=== PATIENT | male | born 1985 | race Caucasian/White ===

== ENCOUNTER 2022-09-10 14:44 | Emergency (ER) | payer BC, OTHER, SELFPAY ==
[~2022-09-10] VITALS: Ht 185.4 cm; Wt 86.4 kg
[2022-09-10] MEDS ORDERED: ACETAMINOPHEN 500 MG TAB PO ONE (15:20)
[2022-09-10] MEDS ORDERED: ONDANSETRON 4MG 2ML VIAL IV ONE (16:30)
[2022-09-10] MEDS ORDERED: MORPHINE 4 MG/ML 1ML VIAL IV ONE (16:30)
[2022-09-10] MEDS ORDERED: NS 1,000 ML IV ONE (16:30)
[2022-09-10 16:54] LABS: HEMATOCRIT 43.1 % (42.0-52.0); HEMOGLOBIN 14.6 g/dl (13.5-17.5); MEAN CORPUSCULAR HEMOGLOBIN 29.4 pg (27.0-33.0); MEAN CORPUSCULAR HGB CONC 33.9 g/dl (32.0-36.5); MEAN CORPUSCULAR VOLUME 86.7 fl (80.0-96.0); PLATELET COUNT, AUTOMATED 326 10^3/uL (150-450); RED BLOOD COUNT 4.97 10^6/uL (4.30-6.10); WHITE BLOOD COUNT 23.1 10^3/uL (4.0-10.0)
[2022-09-10] MEDS ORDERED: NS 1,000 ML IV SCH (17:05)
[2022-09-10 17:14] LABS: BLOOD UREA NITROGEN 11 MG/DL (9-23); CALCIUM LEVEL 8.5 MG/DL (8.5-10.1); CARBON DIOXIDE LEVEL 27 MMOL/L (20-31); CHLORIDE LEVEL 104 MMOL/L (98-107); CREATININE FOR GFR 0.85 MG/DL (0.70-1.30); GLOMERULAR FILTRATION RATE > 60.0 (>60); GLUCOSE, FASTING 139 MG/DL (60-100); POTASSIUM SERUM 3.6 MMOL/L (3.5-5.1); SODIUM LEVEL 139 MMOL/L (136-145)
[2022-09-10] MEDS ORDERED: propofoL 200 MG/20 ML VIAL IV.PROC PRN (17:40)
[2022-09-10] MEDS ORDERED: NORCO 5/325MG TABLET (HOME DOSE PACK) PO ONE (18:40)
[2022-09-10 18:49] VITALS: BP 128/7
== END 2022-09-10 19:36 | disposition home or self-care (01) ==
LOC: M ED 14:44 → EDBD 14:44 → M ED 19:36
DX: S43.004A Unspecified dislocation of right shoulder joint, initial encounter (principal); S42.301A Unspecified fracture of shaft of humerus, right arm, initial encounter for closed fracture; F12.10 Cannabis abuse, uncomplicated; V49.50XA Passenger injured in collision with unspecified motor vehicles in traffic accident, initial encounter; Y92.410 Unspecified street and highway as the place of occurrence of the external cause; Y93.9 Activity, unspecified; Y99.9 Unspecified external cause status
CPT/HCPCS: 23655; 72125; 73020; 73030; 73200; 80048; 85027; 86850; 86900; 86901; 93041; 94760; 96374; 99285; J2270; J2405

== ENCOUNTER → 2022-11-10 | Outpatient (CLI) | payer OTHER | LOC: M SOG 15:29 | PROVIDERS: ATTEND Orthopaedic Surgery | DX: S42.301D Unspecified fracture of shaft of humerus, right arm, subsequent encounter for fracture with routine healing (principal); M25.511 Pain in right shoulder ==

== ENCOUNTER 2024-02-13 11:00 | Emergency (ER) | payer OTHER, SELFPAY ==
[~2024-02-13] VITALS: Ht 185.4 cm; Wt 81.2 kg
[2024-02-13 11:01] VITALS: TEMP 97
[2024-02-13] MEDS ORDERED: AMOX875T2 PO (11:57)
[2024-02-13] MEDS: AUGMENTIN 875 MG TAB PO ONE (12:03)
[2024-02-13] MEDS: KETOROLAC 60MG 2ML VIAL IM ONE (12:04)
[2024-02-13 12:06] VITALS: BP 130/78; O2SAT 98
== END 2024-02-13 12:26 | disposition home or self-care (01) ==
LOC: M ED 11:00
DX: K04.7 Periapical abscess without sinus (principal); F12.10 Cannabis abuse, uncomplicated; Z79.2 Long term (current) use of antibiotics
CPT/HCPCS: 96372; 99283; J1885

== ENCOUNTER → 2024-11-25 | Outpatient (REF) ==
[~2024-11-25] MED LIST: AMOX875T2 PO
== END ==
LOC: M PLAIMG 14:28
PROVIDERS: ATTEND Internal Medicine
DX: M54.50 Low back pain, unspecified (principal)